=== PATIENT | male | born 1945 | race Caucasian/White ===

== ENCOUNTER 2022-01-16 20:37 | Inpatient (IN) | payer MEDICARE, OTHER ==
[~2022-01-16] VITALS: Ht 170.2 cm; Wt 90.7 kg
[2022-01-16 20:51] VITALS: BP 135/86
[2022-01-16 21:00] VITALS: BP 134/74
[2022-01-16] MEDS ORDERED: ONDANSETRON HCL/PF 4 MG/2 ML VIAL IVP PRN (21:00)
[2022-01-16] MEDS ORDERED: MORPHINE SULFATE INJ 2 MG/ML DISP.SYRIN IV PRN (21:00)
[2022-01-16] MEDS ORDERED: HEPARIN INFUSION/D5W 500 ML IV PRN ×2 (21:00)
[2022-01-16] MEDS ORDERED: ACETAMINOPHEN 325 MG TABLET PO PRN (21:00)
--- NOTE | 2022-01-16 21:00 | NUR ---
FOOD SPECIALIST NOTE RECEIVED DIRECT ADMIT FROM [facility] EMERGENCY ROOM VIA EMS VIA PROTOCOL. ADMITTING DX NSTEMI. PATIENT IS A/OX4. ROOM AIR. NONPRODUCTIVE COUGH. NO CURRENT C/O CHEST PAIN. SINUS RHYTHM WITH OCCASIONAL PVC ON THE MONITOR. VSS ON ARRIVAL. PATIENT IS UNAWARE OF MEDICATIONS TAKEN AT HOME. STATES TAKES SOMETHING FOR BPH. PATIENT REFUSED ADMISSION PHOTOS PER PROTOCOL. BELONGINGS DOCUMENTED. DR. MENDOZA MADE AWARE OF ARRIVAL.
[2022-01-16 21:03] VITALS: BP 134/74
[2022-01-16] MEDS: IV NS 0.9% 1,000 ML IV SCH (21:22)
[2022-01-16] MEDS: ATORVASTATIN 40 MG TABLET PO SCH (21:31)
[2022-01-16 22:00] VITALS: BP 129/76
--- NOTE | 2022-01-16 22:30 | NUR ---
RN NOTE INFORMED DR. GOLDBERG THAT PATIENT HAS A PERSISTENT NON PRODUCTIVE COUGH AND IS REQUESTING SOMETHING. RECEIVED ORDER FOR ROBITUSSIN. ORDER NOTED AND WILL BE CARRIED OUT.
[2022-01-16 23:00] VITALS: BP 122/65
[2022-01-16] MEDS: GUAIFENESIN/D-METHORPHAN HB 5 ML UDC PO PRN (23:08)
[2022-01-17] VITALS (25 sets, daily range): BP systolic 100–136; BP diastolic 45–81
--- NOTE | 2022-01-17 00:10 | NUR ---
RN NOTE PATIENT IS NOW NPO. REMOVED ALL FOOD AND DRINK FROM BEDSIDE. PATIENT IS AWARE THAT HE IS NPO, ACKNOWLEDGED.
[2022-01-17 03:24] LABS: BASOPHILS # (AUTO) 0.1 K/uL (0.0-0.2); BASOPHILS % (AUTO) 1.1 % (0.0-2.0); EOSINOPHILS % (AUTO) 2.6 % (0.0-6.0); HEMATOCRIT 43 % (39-51); HEMOGLOBIN 14.5 g/dL (13.5-17.5); LYMPHOCYTES # (AUTO) 2.1 K/uL (0.8-4.8); LYMPHOCYTES % (AUTO) 26.8 % (20.0-44.0); MEAN CORPUSCULAR HGB CONC 33 g/dl (31.0-36.0); MEAN CORPUSCULAR VOLUME 82 fL (80-96); MONOCYTES # (AUTO) 0.8 K/uL (0.1-1.30); MONOCYTES % (AUTO) 10.1 % (2.0-12.0); NEUTROPHILS # (AUTO) 4.6 K/uL (1.8-8.9); NEUTROPHILS % (AUTO) 59.4 % (43.0-81.0); PLATELET COUNT (AUTO) 240 K/uL (150-450); RED BLOOD CELL COUNT(AUTO) 5.26 MIL/uL (4.5-6.0); WHITE BLOOD COUNT (AUTO) 7.7 K/uL (4.3-11.0)
[2022-01-17 03:46] LABS: ALANINE AMINOTRANSFERASE 27 U/L (12-78); ALBUMIN 3.1 g/dL (3.4-5.0); ALKALINE PHOSPHATASE 57 U/L (46-116); ASPARTATE AMINOTRANSFERASE 87 U/L (15-37); BILIRUBIN,TOTAL 0.9 mg/dL (0.2-1.0); CALCIUM, SERUM 8.5 mg/dL (8.5-10.1); CARBON DIOXIDE 26 mmol/L (21-32); CHLORIDE 105 mmol/L (98-107); CREATININE 0.9 mg/dL (0.6-1.3); GLUCOSE 105 mg/dL (74-106); MAGNESIUM 2.2 mg/dL (1.8-2.4); PHOSPHORUS 3.8 mg/dL (2.5-4.9); POTASSIUM 3.9 mmol/L (3.5-5.1); SODIUM SERUM 138 mmol/L (136-145); UREA NITROGEN, BLOOD 17 mg/dL (7-18)
--- NOTE | 2022-01-17 03:50 | NUR ---
RN NOTE RECEIVED CRITICAL LAB FOR TROPONIN [id number]. INFORMED DR. GOLDBERG, PATIENT DENIES CHEST PAIN. NO NEW ORDERS RECEIVED.
--- NOTE | 2022-01-17 06:45 | NUR ---
RN CLOSING NOTE PATIENT A/OX4. PLACED ON 2L NASAL CANULA. SPO2 96%. NO COMPLAINTS OF SOB. NO C/O CP. PATIENT HAS BEEN NPO SINCE MIDNIGHT FOR POSSIBLE CARDIAC CATH TODAY. PATIENT IS CURRENTLY ON HEPARIN GTT @1,200 UNITS/HR. aPTT @0310 IS 62.1. PER [facility] HEPARIN GTT PROTOCOL PATIENT IS WITH RANGE, NO CHANGES FOR HREPARIN GTT RATE. IVF RUNNING. SINUS RHYTHM ON E MONITOR. PRN ROBITUSSIN GIVEN FOR COUGH. DR. GOLDBERG INFORMED OF ELEVATED TROPONIN LEVEL, PATIENT ASYMPTOMATIC.
--- NOTE | 2022-01-17 07:05 | NUR ---
HEALTH PROGRAM SPECIALIST OPENING NOTE: RECEIVED PT. IN BED, AOX4, NO COMPLAINTS OF PAIN/DISCOMFORT AT THIS TIME. ON 02 VIA NASAL CANNULA AT 2 L/MIN, NO S/S OF RESPIRATORY DISTRESS. INSOLE DOUBLER READS NSR. PT. USES URINAL AT BEDSIDE WITH CLEAR YELLOW URINE OUTPUT. SKIN INTACT. PT. NPO SINCE MIDNIGHT FOR LEFT HEART CATH WITH POSSIBLE PCI TODAY BY DR. COURTNEY. IV ACCESS ON LEFT AC #20G WITH HEPARIN RUNNING AT 1,200 UNITS/HR PER PROTOCOL. PTT TODAY IS 62.1, NO S/S OF BLEEDING NOTED; LEFT HAND #20G WITH NS RUNNING AT 75 ML/HR. IV DRESSINGS C/D/I WITH NO S/S OF INFILTRATION NOTED. SAFETY MEASURES IN PLACE: BED IN LOWEST AND LOCKED POSITION, HOB ELEVATED AT 30 DEGREES, SIDE RAILS UP X2, BED ALARM ON, CALL LIGHT WITHIN REACH. WILL ENCOURAGE FREQUENT REPOSITIONING IN BED AT LEAST Q2H. WILL CONTINUE TO MONITOR PT. FOR ANY CHANGES.
[2022-01-17] MEDS ORDERED: MYRBETRIQ PO (09:54)
[2022-01-17] MEDS ORDERED: TAMS-12 PO (09:54)
[2022-01-17] MEDS ORDERED: BIMA2.5D5 EACHEYE (09:54)
[2022-01-17] MEDS ORDERED: BRIM5DRO3 EACHEYE (09:54)
[2022-01-17] MEDS ORDERED: CHOL100043 PO (09:54)
[2022-01-17] MEDS: IV NS 0.9% 1,000 ML IV SCH (10:34)
[2022-01-17] MEDS: METOPROLOL SUCCINATE 25 MG TAB.SR.24H PO SCH (11:13)
[2022-01-17] MEDS: LOSARTAN POTASSIUM 25 MG TABLET PO SCH (11:14)
--- NOTE | 2022-01-17 11:30 | NUR ---
DIRECTOR OF STRATEGIC SOURCING NOTE: DR. COURTNEY SPOKE WITH PT. REGARDING LEFT HEART CATH WITH POSSIBLE PCI TODAY AT 1400. CONSENT SIGNED BY PT. DR. COURTNEY TRIED TO CALL PT.'S SISTER JUANY WITH PHONE NUMBER AND BROTHER IN [employer] WITH PHONE NUMBER BUT THEY'RE NOT PICKING UP. PT. SAID SISTER AND BROTHER IN LAW LIVES IN [place] AND THEY DON'T USUALLY PICKUP CALLS THEY ARE BUSY WITH THEIR RESTAURANT BUSINESS. PT. PREFERS NOT TO LET SISTER KNOW ABOUT THE PROCEDURE CAUSE HE DOESN'T WANT HER TO WORRY. PT. AOX4 AND CAN SIGN CONSENT. MD AWARE. DR. COURTNEY ORDERED HEPARIN DRIP TO BE STOPPED AT 1200 AND OK TO GIVE BP MEDS BEFORE PROCEDURE. WILL FOLLOW ORDERED AND CONTINUE TO MONITOR PT. FOR ANY CHANGES.
--- NOTE | 2022-01-17 13:40 | NUR ---
LIGHT TRUCK DRIVER NOTE: HEPARIN DRIP HELD AT [address] COURTNEY'S ORDER. NO S/S OF BLEEDING NOTED. PT. GOING TO MECHANICAL ENGINEERING MANAGER FOR LEFT HEART CATH WITH POSSIBLE PCI AT 1400. BP MEDS AND ASPIRIN GIVEN THIS AM PER DR. COURTNEY'S ORDER. PT. PICKED UP BY MECHANICAL ENGINEERING MANAGER STAFF AT 1330.
[2022-01-17] MEDS ORDERED: IV SET PRIMARY PUMP SET 1 EA INFUS.SET MC ONE (13:45)
[2022-01-17] MEDS ORDERED: IV NS 0.9% 1,000 ML ONE (13:45)
[2022-01-17] MEDS ORDERED: LIDOCAINE HCL/MPF 1% 30 ML VIAL IJ ONE (13:46)
[2022-01-17] MEDS ORDERED: MIDAZOLAM HCL 2 MG/2ML VIAL ONE ×2 (13:46→14:08)
[2022-01-17] MEDS ORDERED: IODIXANOL 150 ML IV ONE (13:46)
[2022-01-17] MEDS ORDERED: FENTANYL PF 100MCG/2ML AMPUL ONE ×2 (13:46→14:08)
[2022-01-17] MEDS ORDERED: ASPIRIN 325 MG TABLET PO SCH (14:00)
[2022-01-17] MEDS ORDERED: IODIXANOL 320MG/ML 50 ML IV ONE (14:15)
[2022-01-17] MEDS ORDERED: HEPARIN SODIUM, PORCINE 5000 UNITS/1 ML VIAL ONE (14:16)
[2022-01-17] MEDS ORDERED: HEPARIN SODIUM, PORCINE 1,000 UNIT/ML VIAL ONE (14:16)
[2022-01-17] MEDS ORDERED: TICAGRELOR 90 MG TABLET PO ONE (14:44)
[2022-01-17] MEDS ORDERED: NS 0.9% INJ ONE (15:00)
[2022-01-17] MEDS ORDERED: ADENOSINE INJ ONE (15:00)
[2022-01-17] MEDS ORDERED: NOREPINEPHRINE 8 MG in IV NS 0.9% 242 ML IV PRN (15:00)
--- NOTE | 2022-01-17 15:30 | NUR ---
EDUCATION AND TRAINING COORDINATOR NOTE: PT. CAME BACK FROM BLANKET MAKER AT 1520. PT. TOLERATED PROCEDURE WELL. 2 STENTS WERE PUT IN LAD ARTERY. PT. WAS GIVEN THE FOLLOWING MEDS IN BLANKET MAKER: 500 ML NS BOLUS, BRILINTA 180MG, FENTANYL 50 MCG IV, HEPARIN 8,000 UNITS IV, LEVOPHED 0.1 MCG/KG/MIN FOR LOW BP THAT QUICKLY STABILIZED, AND VERSED 1 MG IV. PT. NOW ON RA, SATURATING AT 93%, AOX4, PERSONAL LINES ADVISOR READS NSR AT 84 BPM, RESP - 12 BREATHS/MIN; BP - 124/77, TEMP - 98F, NO PAIN. R FEMUR INSERTION SITE DRESSING C/D/I. DR. COURTNEY ORDERED TO DISCONTINUE HEPARIN DRIP AND CONTINUE IVF WITH NS @ 75ML/HR. WILL KEEP PT. FLAT AND CONTINUE TO MONITOR FOR S/S OF BLEEDING.
[2022-01-17] MEDS: TICAGRELOR 90 MG TABLET PO SCH (17:00)
--- NOTE | 2022-01-17 19:09 | NUR ---
CMV DRIVER CLOSING NOTE: PT. REMAINS IN BED, AOX4, NO COMPLAINTS OF PAIN/DISCOMFORT AT THIS TIME. ON ROOM AIR, NO S/S OF RESPIRATORY DISTRESS. DYER HELPER READS NSR. PT. USES URINAL AT BEDSIDE WITH TOTAL OUTPUT OF 600 ML CLEAR YELLOW URINE THIS SHIFT; 1 VOID AND 1 NORMAL BM VIA COMMODE AT BEDSIDE. SKIN INTACT. S/P LEFT HEART CATH WITH PCI TODAY BY DR. COURTNEY. R FEMORAL ARTERY INSERTION SITE DRESSING C/D/I. NO S/S OF BLEEDING NOTED. IV ACCESS ON LEFT AC #20G, PATENT AND SALINE LOCKED; LEFT HAND #20G WITH NS RUNNING AT 75 ML/HR. IV DRESSINGS C/D/I WITH NO S/S OF INFILTRATION NOTED. SAFETY MEASURES MAINTAINED: BED IN LOWEST AND LOCKED POSITION, HOB ELEVATED AT 30 DEGREES, SIDE RAILS UP X2, BED ALARM ON, CALL LIGHT WITHIN REACH. WILL ENCOURAGE FREQUENT REPOSITIONING IN BED STARTING LATER TONIGHT TO PREVENT BLEEDING AT THIS TIME. ENDORSED CONTINUITY OF CARE TO INSURANCE PROCESSOR RN.
--- NOTE | 2022-01-17 19:28 | NUR ---
PREPRESS MANAGER. INITIAL ASSESSMENT. RECEIVED THE PT REST IN BED. AWAKE. ALERT, FOLLOW COMMANDS.S/P LAD WITH 2 STENT PLACEMENT.SURGICAL SITE, CLEAN AND DRY. NO BLEEDING OR HEMATOMA NOTED. RESIDENT CARE ASSOCIATE SHOWING NSR. IV RT AND LT HAND 20G. IVF NS 75 ML/H. HOB ELEVATED. PT HAS DRY COUGH. COUGH SYRUP GIVEN PER MD ORDER. WILL CONTINUE TO MONITOR VITALS.
[2022-01-17] MEDS: GUAIFENESIN/D-METHORPHAN HB 5 ML UDC PO PRN (19:58)
[2022-01-17] MEDS: ATORVASTATIN 40 MG TABLET PO SCH (21:10)
[2022-01-17] MEDS ORDERED: TRAZODONE 50 MG TABLET PO PRN (23:00)
[2022-01-18] VITALS (16 sets, daily range): BP systolic 96–145; BP diastolic 45–93
[2022-01-18 03:47] LABS: BASOPHILS % (AUTO) 0.5 % (0.0-2.0); EOSINOPHILS % (AUTO) 1.4 % (0.0-6.0); HEMATOCRIT 43 % (39-51); HEMOGLOBIN 14.4 g/dL (13.5-17.5); LYMPHOCYTES # (AUTO) 1.5 K/uL (0.8-4.8); LYMPHOCYTES % (AUTO) 18.9 % (20.0-44.0); MEAN CORPUSCULAR HGB CONC 33 g/dl (31.0-36.0); MEAN CORPUSCULAR VOLUME 83 fL (80-96); MONOCYTES # (AUTO) 0.8 K/uL (0.1-1.30); MONOCYTES % (AUTO) 10.6 % (2.0-12.0); NEUTROPHILS # (AUTO) 5.5 K/uL (1.8-8.9); NEUTROPHILS % (AUTO) 68.6 % (43.0-81.0); PLATELET COUNT (AUTO) 242 K/uL (150-450); RED BLOOD CELL COUNT(AUTO) 5.24 MIL/uL (4.5-6.0)
[2022-01-18 04:05] LABS: CALCIUM, SERUM 8.3 mg/dL (8.5-10.1); CARBON DIOXIDE 26 mmol/L (21-32); CHLORIDE 104 mmol/L (98-107); CREATININE 0.9 mg/dL (0.6-1.3); GLUCOSE 103 mg/dL (74-106); POTASSIUM 3.9 mmol/L (3.5-5.1); SODIUM SERUM 134 mmol/L (136-145); UREA NITROGEN, BLOOD 16 mg/dL (7-18)
--- NOTE | 2022-01-18 06:10 | NUR ---
agricultural research engineer. am care given. remaining same room air tolerated well. sat 98%. no acute distress noted. quality assurance monitor showing nsr. iv rt hand. saline lock. will continue to monitor vitals.
[2022-01-18] MEDS: GUAIFENESIN/D-METHORPHAN HB 5 ML UDC PO PRN (06:16)
--- NOTE | 2022-01-18 07:05 | NUR ---
DECORATION CHECKER OPENING NOTE: RECEIVED PT. IN CHAIR, AWAKE, AOX4, NO COMPLAINTS OF PAIN/DISCOMFORT AT THIS TIME. ON ROOM AIR, NO S/S OF RESPIRATORY DISTRESS. OUTSIDE SALES REPRESENTATIVE READS NSR. PT. USES URINAL AT BEDSIDE WITH CLEAR YELLOW URINE OUTPUT. SKIN INTACT. IV ACCESS ON LEFT AC #20G AND LEFT HAND #20G, BOTH FLUSHING WELL AND SALINE LOCKED. IV DRESSINGS C/D/I WITH NO S/S OF INFILTRATION NOTED. SAFETY MEASURES IN PLACE: BED IN LOWEST AND LOCKED POSITION, HOB ELEVATED AT 30 DEGREES, SIDE RAILS UP X2, BED ALARM ON, CALL LIGHT WITHIN REACH. WILL ENCOURAGE FREQUENT REPOSITIONING IN BED AT LEAST Q2H. WILL CONTINUE TO MONITOR PT. FOR ANY CHANGES.
[2022-01-18] MEDS ORDERED: METO25TA4 PO (07:56)
[2022-01-18] MEDS ORDERED: ASPI-992 PO (07:56)
[2022-01-18] MEDS ORDERED: TICA90TA PO (07:56)
[2022-01-18] MEDS ORDERED: LOSA25TA27 PO (07:56)
[2022-01-18] MEDS: LOSARTAN POTASSIUM 25 MG TABLET PO SCH (08:07)
[2022-01-18] MEDS: TICAGRELOR 90 MG TABLET PO SCH (08:07)
[2022-01-18] MEDS ORDERED: ASPIRIN 325 MG TABLET PO SCH (09:00)
[2022-01-18] MEDS: METOPROLOL SUCCINATE 25 MG TAB.SR.24H PO SCH (11:03)
--- NOTE | 2022-01-18 13:00 | NUR ---
CRIMINOLOGY TEACHER NOTE: PT. DISCONNECTED FROM CARDIAC, SPO2 AND BP MONITOR. LEFT THE UNIT WITH RN AT 1240, WAITED AT HOSPITAL MAIN LOBBY BUT WAS TOLD THAT TAXI WILL BE LATE. PT. WAS BROUGHT BACK UP TO THE ROOM WHILE WAITING FOR THE TAXI. PT. REMAINS AOX4, NO COMPLAINTS OF PAIN/DIZZINESS.
--- NOTE | 2022-01-18 14:08 | NUR ---
BEEKEEPER FARMERBLOOD BANK LABORATORY PROFESSIONAL NOTE: PT. DISCHARGED HOME VIA TAXI. HE WILL BE DROPPED OFF AT [facility] WHERE HIS CAR IS. TAXI VOUCHER GIVEN. PT. REMAINS AWAKE, AOX4, NO COMPLAINTS OF PAIN/DISCOMFORT AT THIS TIME. ON ROOM AIR, NO S/S OF RESPIRATORY DISTRESS. IT INTERN READS NSR. PT. WALKS TO THE BATHROOM TO VOID. GAIT STEADY WITH NO COMPLAINTS OF DIZZINESS NOTED. SKIN INTACT. IV ACCESS REMOVED. PRESSURE APPLIED. DRESSING C/D/I WITH NO S/S OF BLEEDING NOTED. WRITTEN EDUCATION MATERIALS PROVIDED AND EXPLAINED TO PT. VERBALIZED UNDERSTANDING. NEW/CONTINUED MEDICATION LIST PROVIDED, BELONGING LIST SIGNED AND DISCHARGE INSTRUCTIONS PROVIDED. PT. LEFT THE UNIT AMBULATORY, ACCOMPANIED BY RN IN STABLE CONDITION AT 1400.
== END 2022-01-18 14:15 | disposition home or self-care (01) | DRG 247 ==
LOC: ICU 20:37
PROVIDERS: ADMIT Internal Medicine; ATTEND Internal Medicine
PROC: 4A023N7 Measurement of Cardiac Sampling and Pressure, Left Heart, Percutaneous Approach (ICD-10-PCS; principal; 2022-01-17)
PROC: 027035Z Dilation of Coronary Artery, One Artery with Two Drug-eluting Intraluminal Devices, Percutaneous Approach (ICD-10-PCS; 2022-01-17)
PROC: B211YZZ Fluoroscopy of Multiple Coronary Arteries using Other Contrast (ICD-10-PCS; 2022-01-17)
PROC: B41FYZZ Fluoroscopy of Right Lower Extremity Arteries using Other Contrast (ICD-10-PCS; 2022-01-17)
DX: I21.4 Non-ST elevation (NSTEMI) myocardial infarction (principal); N40.0 Benign prostatic hyperplasia without lower urinary tract symptoms
CPT/HCPCS: 36415; 80048-TC; 80053-TC; 83605-TC; 83735-TC; 84100-TC; 84484-TC; 85025-TC; 85347; 85610-TC; 85730-TC; 87081-TC; G0378; J0153; J1644; J2250; J3010; J3490; J7030; J7050; Q9967